=== PATIENT | female | born 1940 ===

== ENCOUNTER 2025-07-26 21:13 | Inpatient (IN) | payer MEDICARE, OTHER ==
[~2025-07-26] VITALS: Ht 157.5 cm; Wt 45.0 kg
[2025-07-26 21:58] LABS: PLATELET COUNT (AUTO) 240 K/uL (150-450); RED BLOOD CELL COUNT(AUTO) 3.64 MIL/uL (4.00-5.20); RED CELL DISTRIBUTION WIDTH 14.1 % (11.5-14.5); WHITE BLOOD COUNT (AUTO) 6.1 K/uL (4.5-11.0)
[2025-07-26 22:05] LABS: CALCIUM, TOTAL 9.1 mg/dL (8.8-10.5); CREATININE 0.80 mg/dL (0.60-1.30); GLOMERULAR FILTR. RATE CALC > 60 mL/min (>60); GLUCOSE,RANDOM 126 mg/dL (70-110); SODIUM SERUM 140 mmol/L (136-145); UREA NITROGEN, BLOOD 25 mg/dL (7-18)
[2025-07-26 22:12] LABS: ASPARTATE AMINOTRANSFERASE 19.0 U/L (15-37); CREATINE KINASE, TOTAL ONLY 88.0 U/L (26-192); TOTAL PROTEIN, SERUM 7.0 g/dL (6.4-8.2)
[2025-07-26 22:15] LABS: TROPONIN I-HIGH SENSITIVITY 10 ng/L (<51)
[2025-07-27 02:08] VITALS: BP 148/56; PULSE 53; RESP 18; TEMP 97.9; O2SAT 99
[2025-07-27 05:26] VITALS: BP 138/71; PULSE 57; RESP 16; TEMP 98.1; O2SAT 99
[2025-07-27 07:43] VITALS: BP 152/55; PULSE 56; RESP 16; TEMP 97.7; O2SAT 98
[2025-07-27 12:00] VITALS: BP 156/66; PULSE 61; RESP 18; TEMP 97.9; O2SAT 99
[2025-07-27] MEDS ORDERED: ONDANSETRON HCL 4 MG/2 ML VIAL IVP PRN (16:30)
[2025-07-27] MEDS ORDERED: ACETAMINOPHEN 325 MG TABLET PO PRN (16:30)
[2025-07-27] MEDS ORDERED: ZOLPIDEM TARTRATE 5 MG TABLET PO PRN (16:30)
[2025-07-27] MEDS ORDERED: MORPHINE SULFATE 4 MG/ML SYRINGE IVP PRN (16:30)
[2025-07-27] MEDS ORDERED: ALBUTEROL SULFATE 2.5 MG/0.5 ML NEB SOLUTION NEB PRN (16:30)
[2025-07-27] MEDS ORDERED: HYDROCODONE/ACETAMINOPHEN 5-325 MG TABLET PO PRN (16:30)
[2025-07-27] MEDS ORDERED: BISACODYL 10 MG RECTAL RECTAL SUPPOSITORY PR PRN (16:30)
[2025-07-27] MEDS ORDERED: MAGNESIUM HYDROXIDE SUSPENSION 30 ML UDCUP PO PRN (16:30)
[2025-07-27] MEDS ORDERED: IPRATROPIUM BROMIDE 0.5 MG/2.5 ML NEB SOLUTION NEB PRN (16:30)
[2025-07-27] MEDS ORDERED: PIPERACILLIN/TAZO 3.375 GM/D5W 50 ML IV SCH (17:00)
[2025-07-27] MEDS ORDERED: VANCOMYCIN 750 MG/WATER(PEG) 150 ML IV ONE ×2 (18:00→21:00)
[2025-07-27 18:43] LABS: APPEARANCE,URINE CLEAR (CLEAR); GLUCOSE, URINE (UA) NEGATIVE (NEGATIVE); LEUKOCYTE ESTERASE ,URINE NEGATIVE (NEGATIVE); NITRATE,URINE NEGATIVE (NEGATIVE); OCCULT BLOOD,URINE NEGATIVE (NEGATIVE); SPECIFIC GRAVITIY, URINE 1.007 (1.003-1.030)
[2025-07-27 19:45] VITALS: BP 143/80; PULSE 73; RESP 18; TEMP 97.9; O2SAT 97
[2025-07-27 20:20] VITALS: BP 115/73; PULSE 77; RESP 18; TEMP 97.7; O2SAT 97
[2025-07-27] MEDS: HEPARIN SODIUM,PORCINE 5,000 UNITS/ML VIAL SQ SCH (23:52)
[2025-07-28 04:00] VITALS: BP 103/60; PULSE 65; RESP 19; TEMP 98.1; O2SAT 98
[2025-07-28 07:29] LABS: PLATELET COUNT (AUTO) 250 K/uL (150-450); RED BLOOD CELL COUNT(AUTO) 3.99 MIL/uL (4.00-5.20); RED CELL DISTRIBUTION WIDTH 13.9 % (11.5-14.5); WHITE BLOOD COUNT (AUTO) 5.9 K/uL (4.5-11.0)
[2025-07-28 07:35] LABS: CALCIUM, TOTAL 8.9 mg/dL (8.8-10.5); CREATININE 0.82 mg/dL (0.60-1.30); GLOMERULAR FILTR. RATE CALC > 60 mL/min (>60); GLUCOSE,RANDOM 93 mg/dL (70-110); SODIUM SERUM 140 mmol/L (136-145); UREA NITROGEN, BLOOD 22 mg/dL (7-18)
[2025-07-28] MEDS ORDERED: VANCOMYCIN 500 MG/WATER(PEG) 100 ML IV SCH (08:00)
[2025-07-28] MEDS: PANTOPRAZOLE SODIUM 40 MG DR TABLET PO SCH (08:44)
[2025-07-28 09:47] VITALS: BP 115/62; PULSE 62; RESP 18; TEMP 97.7; O2SAT 100
[2025-07-28 16:39] VITALS: BP 118/67; PULSE 75; RESP 18; TEMP 97.3; O2SAT 98
[2025-07-28 19:29] VITALS: BP 117/70; PULSE 87; RESP 18; TEMP 98.4; O2SAT 97
[2025-07-29 04:07] VITALS: BP 112/55; PULSE 67; RESP 18; TEMP 97.7; O2SAT 98
[2025-07-29 08:50] VITALS: BP 123/56; PULSE 69; RESP 18; TEMP 98.1; O2SAT 96
== END 2025-07-29 14:50 | DRG 74 ==
LOC: EMS 21:13 → EDH 22:06 → 5N 07-27 01:45 → 6N 07-27 20:07 → UNDODISIN 07-28 13:00 → 6S 07-28 21:02
PROVIDERS: ADMIT Hospitalist; ATTEND Hospitalist
DX: G90.89 Other disorders of autonomic nervous system (principal); F03.90 Unspecified dementia, unspecified severity, without behavioral disturbance, psychotic disturbance, mood disturbance, and anxiety; D64.9 Anemia, unspecified; R29.6 Repeated falls
CPT/HCPCS: 70450; 71045; 80048; 80076; 81003; 82550; 83880; 84484; 85025; 93005; 93306; 93880; 97163; 97530; 99285; G0378; J1644; J2543; 36415-L1; 36415-TC